=== PATIENT | female | born 1960 | race Caucasian/White ===

== ENCOUNTER 2020-11-05 11:33 | Emergency (ER) | payer OTHER ==
[2020-11-05 11:56] VITALS: BMI 21.4
[2020-11-05 12:48] LABS: BASO % 1.2 % (0-2.0); EOS % 1.2 % (0-4.5); HEMATOCRIT 42.4 % (32.4-45.2); HEMOGLOBIN 14.7 GM/dL (10.7-15.3); LYMPH % 23.9 % (8-40); MCH 30.4 pg (25.7-33.7); MCHC 34.7 g/dl (32.0-36.0); MEAN CELL VOLUME 87.5 fl (80-96); MEAN PLT VOLUME 7.7 fl (7.5-11.1); MONO % 5.2 % (3.8-10.2); NEUT % 68.5 % (42.8-82.8); PLATELET COUNT 208 K/MM3 (134-434); RBC 4.84 M/mm3 (3.60-5.2); RDW 13.5 % (11.6-15.6)
[2020-11-05 12:55] LABS: PROTHROMBIN TIME (PATIENT) 12.3 SEC (9.7-13.0)
[2020-11-05 12:57] LABS: ACTIVATED PTT 30.7 SECONDS (25.2-36.5)
[2020-11-05 13:13] LABS: CHLORIDE 104 mmol/L (98-107); SODIUM 137 mmol/L (136-145)
[2020-11-05 13:15] LABS: ALBUMIN 4.2 g/dl (3.4-5.0); ANION GAP 6 MMOL/L (8-16); CALCIUM 8.9 mg/dL (8.5-10.1); CO2 27 mmol/L (21-32); GLUCOSE,RANDOM 105 mg/dL (74-106)
[2020-11-05 13:18] LABS: CREATININE 0.7 mg/dL (0.55-1.3); SGPT/ALT 28 U/L (13-61)
[2020-11-05 13:19] LABS: SGOT/AST 20 U/L (15-37)
[2020-11-05 13:20] LABS: BILIRUBIN,TOTAL 0.6 mg/dL (0.2-1); TOT PROT 7.6 g/dl (6.4-8.2)
[2020-11-05 13:21] LABS: ALK PHOS 54 U/L (45-117)
[2020-11-05 13:40] LABS: URINE APPEARANCE CLEAR; URINE BILIRUBIN NEGATIVE (NEGATIVE); URINE COLOR YELLOW; URINE GLUCOSE (UA) NEGATIVE (NEGATIVE); URINE KETONE NEGATIVE (NEGATIVE); URINE LEUK ESTERASE NEGATIVE (NEGATIVE); URINE NITRITE NEGATIVE (NEGATIVE); URINE PROTEIN NEGATIVE (NEGATIVE); URINE UROBILINOGEN 0.2 mg/dL (0.2-1.0)
[2020-11-05] MEDS ORDERED: DEXAMETHASONE SOD PHOSPHATE 10 MG/1 ML VIAL IVPUSH ONE (14:51)
[2020-11-05] MEDS ORDERED: PANTOPRAZOLE SODIUM 40 MG VIAL IVPUSH ONE (14:55)
[2020-11-05] MEDS ORDERED: DEXAMETHASONE SOD PHOSPHATE 10 MG/1 ML VIAL ONE (15:02)
[2020-11-05] MEDS ORDERED: PANTOPRAZOLE SODIUM 40 MG VIAL ONE (15:03)
[2020-11-05 17:07] VITALS: TEMP 98.4
[2020-11-05] MEDS ORDERED: LORazepam 2 MG TABLET PO ONE (19:04)
[2020-11-05] MEDS ORDERED: LORazepam 1 MG TABLET ONE (20:05)
[2020-11-05 23:00] VITALS: BP 146/78; PULSE 82
[2020-11-08 17:11] LABS: BABESIA MICROTI ANTIBODY IGG <1:10 (Neg:<1:10); BABESIA MICROTI ANTIBODY IGM <1:10 (Neg:<1:10)
== END 2020-11-05 23:03 | disposition home or self-care (01) ==
LOC: JER 11:33
PROC: 3E033NZ Introduction of Analgesics, Hypnotics, Sedatives into Peripheral Vein, Percutaneous Approach (ICD-10-PCS; principal; 2020-11-05)
PROC: 3E033GC Introduction of Other Therapeutic Substance into Peripheral Vein, Percutaneous Approach (ICD-10-PCS; 2020-11-05)
DX: G93.89 Other specified disorders of brain (principal); R53.1 Weakness
CPT/HCPCS: 36415; 70450-TC; 70553-TC; 80053; 81003; 82550; 84484; 85025; 85610; 85730; 86666; 86753; 87086; 87476; 87798; 93005; 93010; 99285-25; J1100